=== PATIENT | male | born 1975 | race Hispanic/Latino ===

== ENCOUNTER 2018-07-31 23:06 | Emergency (ER) | payer SELFPAY | END 2018-08-01 00:26 | disposition home or self-care (01) | LOC: ERS 23:06 | DX: L25.9 Unspecified contact dermatitis, unspecified cause (principal); E11.9 Type 2 diabetes mellitus without complications; I10 Essential (primary) hypertension | CPT/HCPCS: 99282 ==

== ENCOUNTER 2020-04-01 23:30 | Emergency (ER) | payer SELFPAY ==
[2020-04-02] MEDS ORDERED: Ondansetron ODT 8 MG TAB ONE (00:10)
[2020-04-02] MEDS ORDERED: Acetaminophen 500 MG TAB ONE (00:10)
== END 2020-04-02 01:48 | disposition home or self-care (01) ==
LOC: ERS 23:30
DX: U07.1 COVID-19 (principal); E11.9 Type 2 diabetes mellitus without complications; I10 Essential (primary) hypertension; Z79.84 Long term (current) use of oral hypoglycemic drugs; Z79.899 Other long term (current) drug therapy
CPT/HCPCS: 99283; Q0162

== ENCOUNTER 2020-12-23 21:36 | Emergency (ER) | payer SELFPAY | END 2020-12-24 00:10 | disposition home or self-care (01) | LOC: ERS 21:36 | DX: L03.211 Cellulitis of face (principal); Z79.899 Other long term (current) drug therapy; E11.9 Type 2 diabetes mellitus without complications; I10 Essential (primary) hypertension; E78.00 Pure hypercholesterolemia, unspecified | CPT/HCPCS: 99283 ==